=== PATIENT | male | born 1965 | race Two or more races ===

== ENCOUNTER 2022-01-11 20:27 | Inpatient (IN) | payer OTHER ==
[~2022-01-11] VITALS: Ht 167.6 cm; Wt 64.0 kg
--- NOTE | 2022-01-11 21:26 | NUR ---
TO ER BED 2. BIBRA C/O GLF X THIS MORNING. NOW HAVING GENERALIZED BODY PAIN 10/10 ON P/S. PT ADMITS TO KO AFTER FALL. CONNECTED TO MONITOR. AWAITING MD GHOSH
[2022-01-11] MEDS ORDERED: IV NS 0.9% 1,000 ML BAG IV ONE (21:30)
--- NOTE | 2022-01-11 21:41 | NUR ---
LAB AT BEDSIDE
--- NOTE | 2022-01-11 21:44 | NUR ---
COVID ANTIGEN SWAB COLLECTED AND SENT TO LAB
--- NOTE | 2022-01-11 21:45 | NUR ---
PT TAKEN TO CT VIA RITCHIE
[2022-01-11 21:54] LABS: BASOPHILS # (AUTO) 0.1 K/uL (0.0-0.2); BASOPHILS % (AUTO) 0.3 % (0.0-2.0); EOSINOPHILS % (AUTO) 0.3 % (0.0-6.0); HEMATOCRIT 36 % (39-51); HEMOGLOBIN 12.3 g/dL (13.5-17.5); LYMPHOCYTES # (AUTO) 0.9 K/uL (0.8-4.8); LYMPHOCYTES % (AUTO) 4.1 % (20.0-44.0); MEAN CORPUSCULAR HGB CONC 34 g/dl (31.0-36.0); MEAN CORPUSCULAR VOLUME 78 fL (80-96); MONOCYTES # (AUTO) 0.9 K/uL (0.1-1.30); MONOCYTES % (AUTO) 4.1 % (2.0-12.0); NEUTROPHILS # (AUTO) 20.2 K/uL (1.8-8.9); NEUTROPHILS % (AUTO) 91.2 % (43.0-81.0); PLATELET COUNT (AUTO) 396 K/uL (150-450); RED BLOOD CELL COUNT(AUTO) 4.64 MIL/uL (4.5-6.0); WHITE BLOOD COUNT (AUTO) 22.2 K/uL (4.3-11.0)
[2022-01-11] MEDS ORDERED: ONDANSETRON HCL/PF 4 MG/2 ML VIAL ONE (21:55)
[2022-01-11] MEDS ORDERED: CEFTRIAXONE 1GM BAG (ER ONLY) 50 ML IV ONE (21:55)
[2022-01-11] MEDS ORDERED: MORPHINE SULFATE INJ 4 MG/ML DISP.SYRIN ONE (21:55)
--- NOTE | 2022-01-11 21:55 | NUR ---
PT RETURNED TO ER BED [address]
[2022-01-11] MEDS ORDERED: CEFTRIAXONE 1 G in IV D5W 50 ML IV ONE (22:00)
[2022-01-11] MEDS ORDERED: MORPHINE SULFATE INJ 2 MG/ML DISP.SYRIN IV ONE (22:00)
[2022-01-11] MEDS ORDERED: ONDANSETRON HCL/PF 4 MG/2 ML VIAL IVP ONE (22:00)
--- NOTE | 2022-01-11 22:05 | NUR ---
RJ LOPEZ AT BEDSIDE FOR EKG
--- NOTE | 2022-01-11 22:11 | NUR ---
URINE SAMPLE COLLECTED AND SENT TO LAB
[2022-01-11 22:17] LABS: CALCIUM, SERUM 8.2 mg/dL (8.5-10.1); CARBON DIOXIDE 25 mmol/L (21-32); CHLORIDE 99 mmol/L (98-107); CREATININE 0.8 mg/dL (0.6-1.3); GLUCOSE 249 mg/dL (74-106); POTASSIUM 4.2 mmol/L (3.5-5.1); SODIUM SERUM 132 mmol/L (136-145); UREA NITROGEN, BLOOD 25 mg/dL (7-18)
[2022-01-11 22:23] LABS: ALANINE AMINOTRANSFERASE 14 U/L (12-78); ALBUMIN 2.9 g/dL (3.4-5.0); ALCOHOL, BLOOD < 3 mg/dL (0-0); ALKALINE PHOSPHATASE 101 U/L (46-116); ASPARTATE AMINOTRANSFERASE 10 U/L (15-37); BILIRUBIN,DIRECT 0.2 mg/dL (0.0-0.2); BILIRUBIN,TOTAL 0.9 mg/dL (0.2-1.0)
[2022-01-11 23:27] LABS: BILIRUBIN,URINE NEGATIVE (NEGATIVE); COLOR,URINE YELLOW (YELLOW); LEUKOCYTE ESTERASE ,URINE TRACE (NEGATIVE); NITRITE, URINE POSITIVE (NEGATIVE); PROTEIN,URINE 30 mg/dl (NEGATIVE); UGLUCOSE 500 MG/DL mg/dL (NEGATIVE)
[2022-01-11] MEDS ORDERED: ONDANSETRON HCL/PF 4 MG/2 ML VIAL IVP PRN (23:30)
[2022-01-11] MEDS ORDERED: DEXTROSE 50%-WATER 50 ML DISP.SYRIN IV PRN (23:30)
[2022-01-12] MEDS ORDERED: PIPERACILLIN /TAZOBACTAM 3.375 G in IV D5W 50 ML IV SCH ×2
--- NOTE | 2022-01-12 00:10 | NUR ---
REPORT GIVEN LUCIEN RAUSCH FOR [place]
--- NOTE | 2022-01-12 00:40 | NUR ---
MS ENROBING MACHINE OPERATOR NOTES RECEIVED FOR ER PER RITCHIE THIS 53 Y.O.MALE,ALERT,ORIENTED X4,BREATHING REGULAR,NOT IN ANY FORM OF DISTRESS,CHIEF COMPLAINTS OF LOSING BALANCE AN FALLING AT HOME,SUSTAINED SKIN ABRASION ON BOTH LEGS,PROMINENT ON THE LEFT.C/O GENERALIZED BUT MANAGEABLE.WITH MORPHINE 1MG IV FOR PAIN MANAGEMENT.SALINE LOCK LEFT AC INTACT AND PATENT.NO KNOWN ALLERGY TO FOOD AND MEDICINE.VACCINATED PFIEZER X2 WITH BOOSTER.LEWIS CATH INSERTED ON 01/05/22 AT [facility] IN PLACE, DRAINS CLOUDY OUTPUT.WILL CONTINUE TO MONITOR STATUS,CALL LIGHT IN REACH,NEEDS ANTICIPATED.
[2022-01-12 01:30] VITALS: BP 128/82
[2022-01-12] MEDS ORDERED: PIPERACILLIN /TAZOBACTAM 3.375 G VIAL IV ONE (01:58)
[2022-01-12] MEDS ORDERED: ZOSYN IVPB 3.375 G in IV D5W 50ml IV ONE (02:00)
--- NOTE | 2022-01-12 02:17 | NUR ---
OIL WELL DRILLING MANAGER NOTES STARTED ON ZOSYN 3.375 MG IV Z1 ORDERED.
[2022-01-12 02:30] VITALS: BP 128/82
[2022-01-12] MEDS: MORPHINE SULFATE INJ 2 MG/ML DISP.SYRIN IV PRN ×5 (05:28→23:48)
--- NOTE | 2022-01-12 05:28 | NUR ---
MS RN NOTES PAIN MANAGEMENT C/O GENERALIZED PAIN 8/10 ON PAIN SCALE,MORPHINE 1 MG IV GIVEN ORDERED
--- NOTE | 2022-01-12 05:45 | NUR ---
MS RN NOTES ACCU-CHECK BLOOD SUGAR CHECK 202,COVERED WITH HUMULIN R 4 UNITS PER SLIDING SCALE.,PAIN MANAGEMENT EFFECTIVE,LEWIS CATH TO CHANGE THIS MORNING,CALL LIGHT IN REACH,NEEDS ATTENDED.
[2022-01-12] MEDS: BLOOD SUGAR DIAGNOSTIC 1 EACH STRIP IN SCH ×4 (06:04→22:18)
[2022-01-12] MEDS: INSULIN REGULAR, HUMAN 100 UNIT/ML 3 ML VIAL SQ PRN ×3 (06:06→22:18)
[2022-01-12] MEDS ORDERED: GABA300C PO (07:17)
[2022-01-12] MEDS ORDERED: METF-442 PO (07:17)
[2022-01-12] MEDS ORDERED: LISI-768 PO (07:17)
[2022-01-12] MEDS ORDERED: GLIP10TA11 PO (07:17)
[2022-01-12] MEDS ORDERED: TAMS-12 PO (07:17)
--- NOTE | 2022-01-12 07:30 | NUR ---
ms rn received on bed, awake,alert,oriented x4,not in any form of distress, respirations even and unlabored,no sob noted, lungs are clear,abdomen soft,positive bowel sounds,denies pain at this time,miller to gravity w/ yellowish urine output,repositioned for comfort,all needs attended.
--- NOTE | 2022-01-12 08:20 | NUR ---
ms rn breakfast served,due meds given, tolerated well,miller cath to be change today, patient wants it later today.
[2022-01-12] MEDS: PIPERACILLIN /TAZOBACTAM 3.375 G in IV D5W 100 ML IV SCH ×3 (08:33→23:30)
[2022-01-12] MEDS: PANTOPRAZOLE 40 MG VIAL IV SCH (08:33)
[2022-01-12 08:59] LABS: BACTERIA,URINE Rare /HPF (None Seen); SQUAMOUS EPITHELIAL CELL,UR None Seen /HPF (None Seen); URIC ACID CRYSTALS,URINE Moderate /HPF (None Seen)
[2022-01-12] MEDS: ACETAMINOPHEN 325 MG TABLET PO PRN ×2 (09:04→21:23)
--- NOTE | 2022-01-12 11:40 | NUR ---
ms rn blood sugar - 222 - patient refused coverage because he did not eat lunch today, will continue to monitor patient.
--- NOTE | 2022-01-12 15:28 | NUR ---
rn miller catheter changed, w/ good output.
--- NOTE | 2022-01-12 17:31 | NUR ---
ms rn on bed, all needs attended.
--- NOTE | 2022-01-12 19:30 | NUR ---
MS RN OPENING NOTE RECEIVED PT RESTING IN BED, EYES CLOSED, EASILY AROUSABLE. A/O X3 AND ABLE TO MAKE NEEDS KNOWN. PT STABLE ON ROOM AIR. NO SOB OR S/S OF RESPIRATORY DISTRESS NOTED. BREATHING EVEN AND UNLABORED. IV ACCESS L WRIST AND L HAND 18 GAUGE, INTACT AND PATENT. LEWIS CATH IN PLACE DRAINING CLEAR YELLOW URINE. SAFETY PRECAUTIONS IN PLACE. BED IN LOWEST LOCKED POSITION, HOB ELEVATED, SIDE RAILS UP X2, AND CALL LIGHT AND TABLE WITHIN REACH. ALL NEEDS MET AT THIS TIME.
[2022-01-12 20:00] VITALS: BP 121/71
--- NOTE | 2022-01-12 21:23 | NUR ---
RN NOTE PT COMPLAINING OF GENERALIZED PAIN AND REQUESTED TYLENOL. ADMINISTERED TYLENOL 650 MG ORDERED FOR MILD PAIN PRN. MADE COMFORTABLE IN BED. ALL NEEDS MET AT THIS TIME.
--- NOTE | 2022-01-12 22:18 | NUR ---
RN NOTE PT BS 184. PT REFUSING INSULIN PT STATED HE WILL NOT BE EATING TONIGHT. EXPLAINED THE RISKS AND BENEFITS. PT STILL REFUSED. CHARGE NURSE KARLOS AWARE.
--- NOTE | 2022-01-12 23:48 | NUR ---
RN NOTE PT COMPLAINED OF GENERALIZED PAIN 05/12. ADMINISTERED MORPHINE 1 MG FOR SEVERE PAIN ORDERED. MADE COMFORTABLE IN BED. ALL NEEDS MET AT THIS TIME.
[2022-01-13] MEDS: MORPHINE SULFATE INJ 2 MG/ML DISP.SYRIN IV PRN ×5 (05:13→23:25)
--- NOTE | 2022-01-13 05:14 | NUR ---
RN NOTE PT COMPLAINED OF GENERALIZED PAIN 05/12. ADMINISTERED MORPHINE 1 MG FOR SEVERE PAIN ORDERED. MADE COMFORTABLE IN BED AND PARTIAL LINEN CHANGE. ALL NEEDS MET AT THIS TIME.
[2022-01-13] MEDS: BLOOD SUGAR DIAGNOSTIC 1 EACH STRIP IN SCH ×4 (06:30→22:23)
[2022-01-13] MEDS: INSULIN REGULAR, HUMAN 100 UNIT/ML 3 ML VIAL SQ PRN ×3 (06:31→22:25)
--- NOTE | 2022-01-13 06:52 | NUR ---
MS RN CLOSING NOTE PT RESTING IN BED, EYES CLOSED, EASILY AROUSABLE. A/O X3 AND ABLE TO MAKE NEEDS KNOWN. PT STABLE ON ROOM AIR. NO SOB OR S/S OF RESPIRATORY DISTRESS NOTED. BREATHING EVEN AND UNLABORED. IV ACCESS L WRIST 18 GAUGE, INTACT AND PATENT. LEWIS CATH IN PLACE DRAINING CLEAR YELLOW URINE. SAFETY PRECAUTIONS IN PLACE AT ALL TIMES. BED IN LOWEST LOCKED POSITION, HOB ELEVATED, SIDE RAILS UP X2, AND CALL LIGHT AND TABLE WITHIN REACH. ALL NEEDS MET AT THIS TIME AND WILL ENDORSE TO ONCOMING SHIFT FOR [place].
--- NOTE | 2022-01-13 07:30 | NUR ---
ms rn received on bed, awake,alert,oriented x 3,patient always seeking for pain meds. miller to gravity w/ yellowish urine output, will monitor patient at this time.
[2022-01-13 08:00] VITALS: BP 115/74
[2022-01-13] MEDS: PIPERACILLIN /TAZOBACTAM 3.375 G in IV D5W 100 ML IV SCH ×3 (08:04→23:32)
[2022-01-13] MEDS: PANTOPRAZOLE 40 MG VIAL IV SCH (08:05)
--- NOTE | 2022-01-13 08:30 | NUR ---
ms moreno breakfast served,due meds given,tolerated well.
--- NOTE | 2022-01-13 09:20 | NUR ---
ms moreno breakfast served,due meds given,tolerated well.
--- NOTE | 2022-01-13 09:55 | NUR ---
ms rn was seen by andrea aguirre, was aware of the pain and dyspahgia of patient.
--- NOTE | 2022-01-13 12:00 | NUR ---
ms rn patient refused accucheck at this time.
--- NOTE | 2022-01-13 15:38 | NUR ---
ms rn on bed, pain meds just given, having pain meds q 4 as needed.
[2022-01-13 15:39] VITALS: BP 144/85
[2022-01-13 17:04] LABS: THYROID STIMULATING HORMONE 0.135 uIU/mL (0.358-3.74)
[2022-01-13 17:09] LABS: C-REACTIVE PROTEIN 20.9 mg/dL (0.0-0.9)
--- NOTE | 2022-01-13 19:30 | NUR ---
MS RN OPENING NOTE RECEIVED PATIENT IN BED. A/OX3. NO S/S OF APPARENT DISTRESS ON ROOM AIR. PAIN MANAGED WITH MEDICATION BY MORNING SHIFT-- JUST GIVEN MORPHINE. NO FLUIDS RUNNING AT THIS TIME. LEWIS CATH DRAINING CLEAR STRAW COLORED URINE. SAFETY IN PLACE. ORIENTED BY THE USE OF CALL LIGHT. WILL CONTINUE WITH PLAN OF CARE FOR PATIENT.
[2022-01-13 20:00] VITALS: BP 96/65
[2022-01-13] MEDS: ACETAMINOPHEN 325 MG TABLET PO PRN (20:38)
--- NOTE | 2022-01-13 20:40 | NUR ---
MS RN NOTE STILL IN PAIN AFTER MORPHINE. OK TO GIVE TYLENOL PER CHARGE NURSE, BRYAN.
[2022-01-14] MEDS: ACETAMINOPHEN 325 MG TABLET PO PRN ×3 (02:05→23:10)
--- NOTE | 2022-01-14 02:07 | NUR ---
MS RN NOTE PATIENT C/O PAIN AND REQUESTED FOR TYLENOL. WILL CONTINUE TO MONITOR.
[2022-01-14] MEDS: MORPHINE SULFATE INJ 2 MG/ML DISP.SYRIN IV PRN ×5 (03:31→20:20)
[2022-01-14] MEDS: BLOOD SUGAR DIAGNOSTIC 1 EACH STRIP IN SCH ×4 (06:25→21:47)
[2022-01-14] MEDS: INSULIN REGULAR, HUMAN 100 UNIT/ML 3 ML VIAL SQ PRN ×4 (06:27→21:51)
--- NOTE | 2022-01-14 06:44 | NUR ---
MS RN CLOSING NOTE PATIENT IN BED WITH EYES CLOSED. EASY TO AROUSE. NO S/S OF APPARENT DISTRESS ON ROOM AIR. PAIN MANAGED WITH MEDICATIONS. TKO RUNNING AT 5 MLS/HR. LEWIS CATH DRAINING CLEAR, STRAW COLORED URINE. ALL NEEDS ATTENDED. ALL SCHEDULED MEDICATIONS ADMINISTERED. WILL ENDORSE TO MIRACLE DIAZ FOR CONTINUITY OF CARE.
[2022-01-14 06:47] LABS: BASOPHILS # (AUTO) 0.1 K/uL (0.0-0.2); BASOPHILS % (AUTO) 0.3 % (0.0-2.0); EOSINOPHILS % (AUTO) 0.8 % (0.0-6.0); HEMATOCRIT 35 % (39-51); LYMPHOCYTES # (AUTO) 1.2 K/uL (0.8-4.8); LYMPHOCYTES % (AUTO) 7.9 % (20.0-44.0); MEAN CORPUSCULAR HGB CONC 35 g/dl (31.0-36.0); MEAN CORPUSCULAR VOLUME 77 fL (80-96); MONOCYTES # (AUTO) 0.8 K/uL (0.1-1.30); MONOCYTES % (AUTO) 5.1 % (2.0-12.0); NEUTROPHILS % (AUTO) 85.9 % (43.0-81.0); PLATELET COUNT (AUTO) 371 K/uL (150-450); RED BLOOD CELL COUNT(AUTO) 4.52 MIL/uL (4.5-6.0); WHITE BLOOD COUNT (AUTO) 15.1 K/uL (4.3-11.0)
[2022-01-14 06:55] LABS: CALCIUM, SERUM 8.9 mg/dL (8.5-10.1); CREATININE 0.7 mg/dL (0.6-1.3); MAGNESIUM 1.3 mg/dL (1.8-2.4); PHOSPHORUS 3.6 mg/dL (2.5-4.9); POTASSIUM 3.8 mmol/L (3.5-5.1)
--- NOTE | 2022-01-14 07:42 | NUR ---
MS RN OPENING NOTE RECEIVED PATIENT AWAKE IN BED. A/OX4. NO DISTRESS NOTED. ON ROOM AIR TOLERATING WELL. COMPLAINS OF PAIN. 05/12 MORPHINE GIVEN ORDERED. LEWIS CATH DRAINING CLEAR COLORED URINE. IV ACCESS ON THE LEFT WRIST g # 18 AND LEFT HAND INTACT. SAFETY MEASURES IN PLACE. BED LOCKED IN THE LOWEST POSITION. CALL LIGHT AND TABLE IN REACH. WILL CONTINUE TO MONITOR THE PATIENT.
[2022-01-14] MEDS ORDERED: Magnesium 1GM/D5W 100ML PREMIX 100 ML IV SCH (08:00)
[2022-01-14] MEDS: PANTOPRAZOLE 40 MG TABLET.DR PO SCH (08:32)
[2022-01-14] MEDS: Magnesium 1GM/D5W 100ML PREMIX 100 ML IV SCH ×2 (08:33→13:59)
[2022-01-14] MEDS: PIPERACILLIN /TAZOBACTAM 3.375 G in IV D5W 100 ML IV SCH ×2 (09:37→16:09)
--- NOTE | 2022-01-14 16:20 | NUR ---
RN NOTES PT MOANING AND SCREAMING WITH C/O BLE AND BUE ACHING PAIN, 10/10 SCALE. PRN MORPHINE 1MG IVP ADMINISTERED AT 1615. WILL CONTINUE TO MONITOR AND REASSESS PT.
--- NOTE | 2022-01-14 19:31 | NUR ---
MS RN OPENING NOTE RECEIVED PATIENT IN BED. A/OX3-4. NO S/S OF APPARENT DISTRESS ON ROOM AIR. IN CONSTANT PAIN. NO FLUIDS RUNNING AT THIS TIME. LEWIS CATH DRAINING CLEAR STRAW COLORED URINE. SAFETY IN PLACE. ORIENTED BY THE USE OF CALL LIGHT. WILL CONTINUE WITH PLAN OF CARE FOR PATIENT. NEEDS ATTENDED AT THIS TIME.
--- NOTE | 2022-01-14 19:46 | NUR ---
MS RN CLOSING NOTE PATIENT AWAKE IN BED. A/OX4. NO DISTRESS NOTED. ON ROOM AIR TOLERATING WELL. LEWIS CATH DRAINING CLEAR COLORED URINE. IV ACCESS ON THE LEFT WRIST g # 18.ALL DUE MEDS GIVEN ORDERED.SAFETY MEASURES IN PLACE. BED LOCKED IN THE LOWEST POSITION. CALL LIGHT AND TABLE IN REACH. WILL ENDORSE FOR [place].
[2022-01-14 20:00] VITALS: BP 104/69
[2022-01-14] MEDS: MEROPENEM 1 G in IV NS 0.9% 100 ML IV SCH (20:23)
[2022-01-15] MEDS: MORPHINE SULFATE INJ 2 MG/ML DISP.SYRIN IV PRN ×7 (00:22→23:58)
[2022-01-15] MEDS: MEROPENEM 1 G in IV NS 0.9% 100 ML IV SCH ×3 (04:34→21:35)
[2022-01-15 06:19] LABS: BASOPHILS % (AUTO) 0.3 % (0.0-2.0); EOSINOPHILS % (AUTO) 0.6 % (0.0-6.0); HEMATOCRIT 36 % (39-51); HEMOGLOBIN 12.5 g/dL (13.5-17.5); LYMPHOCYTES % (AUTO) 5.7 % (20.0-44.0); MEAN CORPUSCULAR HGB CONC 35 g/dl (31.0-36.0); MEAN CORPUSCULAR VOLUME 77 fL (80-96); MONOCYTES # (AUTO) 0.8 K/uL (0.1-1.30); MONOCYTES % (AUTO) 4.7 % (2.0-12.0); NEUTROPHILS # (AUTO) 15.2 K/uL (1.8-8.9); NEUTROPHILS % (AUTO) 88.7 % (43.0-81.0); PLATELET COUNT (AUTO) 408 K/uL (150-450); RED BLOOD CELL COUNT(AUTO) 4.64 MIL/uL (4.5-6.0); WHITE BLOOD COUNT (AUTO) 17.1 K/uL (4.3-11.0)
[2022-01-15] MEDS: BLOOD SUGAR DIAGNOSTIC 1 EACH STRIP IN SCH ×4 (06:32→21:35)
[2022-01-15] MEDS: INSULIN REGULAR, HUMAN 100 UNIT/ML 3 ML VIAL SQ PRN ×4 (06:36→21:56)
--- NOTE | 2022-01-15 06:58 | NUR ---
MS RN CLOSING NOTE PATIENT IN BED WITH EYES CLOSED, EASY TO AROUSE. A/OX4, PATIENT PREFERS NO GOWN AT THIS TIME. NO S/S OF APPARENT DISTRESS ON ROOM AIR. BREATHING EVEN AND UNLABORED. PAIN MANAGED WITH MEDICATIONS. ALL NEEDS ATTENDED. ALL SCHEDULED MEDICATIONS ADMINISTERED. NO SIGNIFICANT CHANGE WITH PATIENT. WILL ENDORSE TO MORNING SHIFT RN FOR CONTINUITY OF CARE.
[2022-01-15 07:21] LABS: CALCIUM, SERUM 8.8 mg/dL (8.5-10.1); CREATININE 0.6 mg/dL (0.6-1.3); MAGNESIUM 1.5 mg/dL (1.8-2.4); POTASSIUM 3.8 mmol/L (3.5-5.1)
--- NOTE | 2022-01-15 07:50 | NUR ---
RN OPENING NOTE PATIENT IN BED. A/OX4. ON ROOM AIR. IN CONSTANT PAIN. NO FLUIDS RUNNING AT THIS TIME. LEWIS CATH DRAINING CLEAR YELLOW COLORED URINE. SAFETY IN PLACE. ORIENTED BY THE USE OF CALL LIGHT. DR FLYNN SAW PT. ASSESSING PAIN MEDS AND NEEDS, WILL CONTINUE WITH PLAN OF CARE FOR PATIENT. NEEDS ATTENDED AT THIS TIME. MONITOR / ASSIST
[2022-01-15 08:17] VITALS: BP 142/88
--- NOTE | 2022-01-15 08:30 | NUR ---
RN NOTE- PT CRYING THIS MORNING. PAIN COMPLAINTS. DR FLYNN ORDERED INCREASE IN CURRENT MORPHINE DOSING. NEW ORDER MORPHINE 2 MG IV Q4HPRN
[2022-01-15] MEDS: PANTOPRAZOLE 40 MG TABLET.DR PO SCH (08:51)
[2022-01-15] MEDS ORDERED: MAGNESIUM OXIDE 400 MG TABLET PO ONE (11:30)
[2022-01-15 16:22] VITALS: BP_SYST 138; BP_SYST 142; BP_DIAS 85; BP_DIAS 88
--- NOTE | 2022-01-15 18:33 | NUR ---
RN CLOSING NOTE PATIENT IN BED. A/OX4. ON ROOM AIR. NO FLUIDS RUNNING AT THIS TIME. LEWIS CATH DRAINING CLEAR TEA COLORED URINE. SAFETY IN PLACE. ORIENTED BY THE USE OF CALL LIGHT PAIN MANAGEMENT CONSULT ORDERED. DR TO SEE TOMORROW. WILL CONTINUE WITH PLAN OF CARE FOR PATIENT. NEEDS ATTENDED AT THIS TIME. MONITOR / ASSIST
[2022-01-15 20:00] VITALS: BP 132/81
--- NOTE | 2022-01-15 20:07 | NUR ---
RN OPENING NOTE PATIENT RECEIVED AWAKE IN BED. A/OX4. NO S/S OF DISTRESS, BREATHING ON RM AIR W/O DIFFICULTY. L-WRIST #18 INTACT AND PATENT. SAFETY MEASURES IN PLACE: BED AT LOWEST POSITION, LOCKED, RAILS UPX3, CALL WHITING WITHIN REACH. WILL CONTINUE TO MONITOR PATIENT.
[2022-01-15] MEDS: ACETAMINOPHEN 325 MG TABLET PO PRN (21:54)
[2022-01-16] MEDS: MORPHINE SULFATE INJ 2 MG/ML DISP.SYRIN IV PRN ×5 (04:00→21:42)
[2022-01-16] MEDS: MEROPENEM 1 G in IV NS 0.9% 100 ML IV SCH ×3 (05:07→21:01)
[2022-01-16] MEDS: INSULIN REGULAR, HUMAN 100 UNIT/ML 3 ML VIAL SQ PRN ×4 (06:21→22:24)
[2022-01-16 06:31] LABS: BASOPHILS % (AUTO) 0.5 % (0.0-2.0); EOSINOPHILS % (AUTO) 1.3 % (0.0-6.0); HEMATOCRIT 39 % (39-51); HEMOGLOBIN 13.6 g/dL (13.5-17.5); LYMPHOCYTES # (AUTO) 1.1 K/uL (0.8-4.8); LYMPHOCYTES % (AUTO) 11.2 % (20.0-44.0); MEAN CORPUSCULAR HGB CONC 35 g/dl (31.0-36.0); MEAN CORPUSCULAR VOLUME 77 fL (80-96); MONOCYTES # (AUTO) 0.6 K/uL (0.1-1.30); MONOCYTES % (AUTO) 6.4 % (2.0-12.0); NEUTROPHILS # (AUTO) 8.1 K/uL (1.8-8.9); NEUTROPHILS % (AUTO) 80.6 % (43.0-81.0); PLATELET COUNT (AUTO) 444 K/uL (150-450); RED BLOOD CELL COUNT(AUTO) 5.06 MIL/uL (4.5-6.0)
[2022-01-16] MEDS: BLOOD SUGAR DIAGNOSTIC 1 EACH STRIP IN SCH ×4 (06:36→21:55)
[2022-01-16 06:50] LABS: CREATININE 0.7 mg/dL (0.6-1.3); MAGNESIUM 1.5 mg/dL (1.8-2.4); PHOSPHORUS 2.9 mg/dL (2.5-4.9); POTASSIUM 4.4 mmol/L (3.5-5.1)
--- NOTE | 2022-01-16 07:50 | NUR ---
RN CLOSING NOTE PATIENT IS ASLEEP IN BED. A/OX4. NO S/S OF DISTRESS, BREATHING WELL ON ROOM AIR. L-WRIST #18INTACT AND PATENT. SAFETY MEASURES IN PLACE: BED AT LOWEST POSITION, LOCKED, RAILS UP X3, CALL WHITING WITHIN REACH. REPORT ENDORSED TO AND ACKNOWLEDGED BY AMEE DAY SHIFT RN, FOR [place].
--- NOTE | 2022-01-16 07:56 | NUR ---
RN OPENING NOTE PATIENT IN BED RESTING, SLEEPING, AWAKENS TO VERBAL STIMULI. A/O X 4. NO S/S OF PAIN NOTED AT THIS TIME. ON ROOM AIR, NO DISTRESS OR SHORTNESS OF BREATH NOTED. IV ACCESS L WRIST #18G, INTACT, PATENT AND FLUSHING WELL. PATIENT HAVE A LEWIS CATHETER, IN PLACE DRAINING WELL. FALL AND SAFETY MEASURES IN PLACE, BED ALARM ON, BED IN LOW AND LOCK POSITION, CALL LIGHT AND TABLE WITHIN EASY REACH, SIDE RAILS UP X2. WILL CONTINUE TO MONITOR.
[2022-01-16 08:00] VITALS: BP 127/88
[2022-01-16] MEDS: PANTOPRAZOLE 40 MG TABLET.DR PO SCH (08:11)
[2022-01-16] MEDS ORDERED: MAGNESIUM OXIDE 400 MG TABLET PO ONE (12:30)
[2022-01-16 15:48] VITALS: BP 109/74
[2022-01-16] MEDS ORDERED: IV NS 0.9% 1,000 ML IV ONE (16:00)
[2022-01-16] MEDS: ACETAMINOPHEN 325 MG TABLET PO PRN (16:09)
--- NOTE | 2022-01-16 19:27 | NUR ---
RN CLOSING NOTE PATIENT IN BED RESTING, SLEEPING, AWAKENS TO VERBAL STIMULI. A/O X 4. NO S/S OF PAIN NOTED AT THIS TIME. ON ROOM AIR, NO DISTRESS OR SHORTNESS OF BREATH NOTED. IV ACCESS L WRIST #18G, INTACT, PATENT AND FLUSHING WELL. PATIENT HAVE A LEWIS CATHETER, IN PLACE DRAINING WELL, OUTPUT 450ML. FALL AND SAFETY MEASURES IN PLACE, BED ALARM ON, BED IN LOW AND LOCK POSITION, CALL LIGHT AND TABLE WITHIN EASY REACH, SIDE RAILS UP X2. WILL ENDORSE TO ACCOUNTS RECEIVABLE ASSISTANT.
--- NOTE | 2022-01-16 19:30 | NUR ---
MS RN OPENING NOTES RECEIVED PATIENT IN BED; AWAKE, ALERT AND ORIENTED X4. BREATHING IS EVEN AND NONLABORED. IN NO ACUTE DISTRESS NOTED. ON ROOM AIR, WELL TOLERATED. WITH IV ACCESS ON LEFT WRIST G#18 INFUSING WITH NS 1L REGULATED AT 50ML/HR; PATENT, INTACT AND FLUSHES WELL. ABLE TO MAKE NEEDS KNOWN. SAFETY MEASURES IMPLEMENTED: CALL BUTTON AND TABLE WITHIN EASY REACH, SIDE RAILS UP X2, BED IN LOWEST LOCKED POSITION. WILL CONTINUE PLAN OF CARE.
[2022-01-16 20:00] VITALS: BP_SYST 134; BP_SYST 139; BP_DIAS 84
--- NOTE | 2022-01-16 21:55 | NUR ---
MS RN NOTES] BLOOD SUGAR CHECKED AT 2150 WITH RESULT OF 200 MG/DL; 3 UNITS OF INSULIN GIVEN PER SLIDING SCALE ORDERED.
[2022-01-17] MEDS: MORPHINE SULFATE INJ 2 MG/ML DISP.SYRIN IV PRN ×3 (02:39→12:38)
[2022-01-17] MEDS: ACETAMINOPHEN 325 MG TABLET PO PRN (06:02)
[2022-01-17] MEDS: MEROPENEM 1 G in IV NS 0.9% 100 ML IV SCH ×3 (06:02→21:19)
[2022-01-17] MEDS: BLOOD SUGAR DIAGNOSTIC 1 EACH STRIP IN SCH ×4 (06:16→21:19)
[2022-01-17] MEDS: INSULIN REGULAR, HUMAN 100 UNIT/ML 3 ML VIAL SQ PRN ×4 (06:42→21:22)
--- NOTE | 2022-01-17 07:00 | NUR ---
MS RN CLOSING NOTES PATIENT IS IN BED; SLEEPING, EASILY AROUSABLE TO VERBAL STIMULI; ALERT AND ORIENTED X4. ON ROOM AIR, TOLERATING WELL. NO SHORTNESS OF BREATH NOTED. WITH IV ACCESS ON L WRIST #18G; PATENT INTACT AND FLUSHING WELL. PATIENT HAVE A LEWIS CATHETER, IN PLACE DRAINING WELL, OUTPUT 450ML. FALL AND SAFETY MEASURES IN PLACE, BED ALARM ON, BED IN LOW AND LOCK POSITION, CALL LIGHT AND TABLE WITHIN EASY REACH, SIDE RAILS UP X2. WILL ENDORSE TO MORNING SHIFT FOR [place].
[2022-01-17 07:24] LABS: BASOPHILS # (AUTO) 0.1 K/uL (0.0-0.2); BASOPHILS % (AUTO) 0.7 % (0.0-2.0); EOSINOPHILS % (AUTO) 1.5 % (0.0-6.0); HEMATOCRIT 38 % (39-51); HEMOGLOBIN 13.6 g/dL (13.5-17.5); LYMPHOCYTES # (AUTO) 1.2 K/uL (0.8-4.8); LYMPHOCYTES % (AUTO) 12.4 % (20.0-44.0); MEAN CORPUSCULAR HGB CONC 36 g/dl (31.0-36.0); MEAN CORPUSCULAR VOLUME 76 fL (80-96); MONOCYTES # (AUTO) 0.7 K/uL (0.1-1.30); MONOCYTES % (AUTO) 7.2 % (2.0-12.0); NEUTROPHILS # (AUTO) 7.8 K/uL (1.8-8.9); NEUTROPHILS % (AUTO) 78.2 % (43.0-81.0); PLATELET COUNT (AUTO) 446 K/uL (150-450); RED BLOOD CELL COUNT(AUTO) 4.99 MIL/uL (4.5-6.0)
--- NOTE | 2022-01-17 07:26 | NUR ---
MS RN OPENING NOTES RECEIVED PATIENT IN BED; AWAKE, ALERT AND ORIENTED X4. ABLE TO MAKE NEEDS KNOWN. ON ROOM AIR, WELL TOLERATED. BREATHING IS EVEN AND UNLABORED, NOT IN ANY SIGN OF RESPIRATORY DISTRESS NOTED. IV ACCESS ON LEFT WRIST G#18 INTACT AND PATENT WITH NS INFUSING AT 50ML/HR. SAFETY MEASURES IMPLEMENTED: CALL BUTTON AND TABLE WITHIN EASY REACH, SIDE RAILS UP X2, BED IN LOWEST AND LOCKED POSITION. WILL CONTINUE TO MONITOR AND WITH PLAN OF CARE.
[2022-01-17 08:00] VITALS: BP 141/91
[2022-01-17 08:00] LABS: CREATININE 0.6 mg/dL (0.6-1.3); MAGNESIUM 1.5 mg/dL (1.8-2.4); POTASSIUM 4.2 mmol/L (3.5-5.1)
[2022-01-17] MEDS: PANTOPRAZOLE 40 MG TABLET.DR PO SCH (08:23)
[2022-01-17] MEDS ORDERED: MAGNESIUM OXIDE 400 MG TABLET PO ONE (12:30)
[2022-01-17 13:06] LABS: *SPE A/G RATIO 0.7 (0.7-1.7); *SPE ALPHA-1-GLOBULIN 0.4 g/dL (0.0-0.4); *SPE ALPHA-2-GLOBULIN 1.2 g/dL (0.4-1.0); *SPE M-SPIKE Not Observed g/dL (Not Observed)
[2022-01-17] MEDS: GABAPENTIN 300 MG CAPSULE PO SCH ×2 (14:44→16:22)
[2022-01-17 16:00] VITALS: BP 141/90
[2022-01-17] MEDS: HYDROCODONE/APAP 10/325MG TABLET PO PRN ×2 (16:28→23:26)
--- NOTE | 2022-01-17 19:27 | NUR ---
MS RN CLOSING NOTES PATIENT IN BED; AWAKE, ALERT AND ORIENTED X4. ABLE TO MAKE NEEDS KNOWN. ON ROOM AIR, WELL TOLERATED. BREATHING IS EVEN AND UNLABORED, NOT IN ANY SIGN OF RESPIRATORY DISTRESS NOTED. IV ACCESS ON LEFT WRIST G#18 INTACT AND PATENT WITH NS INFUSING AT 50ML/HR. TURNED AND REPOSITIONED Q2HRS AND NEEDED. ALL NEEDS ATTENDED. SAFETY MEASURES IMPLEMENTED: CALL BUTTON AND TABLE WITHIN EASY REACH, SIDE RAILS UP X2, BED IN LOWEST AND LOCKED POSITION. ENDORSED TO CD MIXER NURSE.
--- NOTE | 2022-01-17 19:43 | NUR ---
RN OPENING NOTES RECEIVED PT IN BED, ASLEEP, AWAKENS TO VERBAL STIMULI. AOx4, ABLE TO MAKE NEEDS KNOWN. ON RA AND TOLERATING WELL. NO SOB NOTED. NO S/SX OF RESPIRATORY DISTRESS NOTED. IV ACCESS IN L WRIST #18G RUNNING NS @ 50 ML/HR. SAFETY PRECAUTIONS IN PLACE: BED IN LOWEST, LOCKED POSITION, SIDERAILS UPx2, AND BRAKES ON. TABLE AND CALL LIGHT WITHIN REACH. WILL CONTINUE TO MONITOR.
[2022-01-17 20:00] VITALS: BP 127/75
[2022-01-17] MEDS: TAMSULOSIN 0.4 MG CAP.SR.24H PO SCH (21:20)
--- NOTE | 2022-01-17 23:26 | NUR ---
ADMINISTERED NORCO FOR PAIN PER MD ORDER. VS WNL. WILL CONTINUE TO MONITOR.
[2022-01-18] MEDS: MEROPENEM 1 G in IV NS 0.9% 100 ML IV SCH ×3 (05:10→21:45)
[2022-01-18] MEDS: MORPHINE SULFATE INJ 2 MG/ML DISP.SYRIN IV PRN ×2 (05:10→15:20)
--- NOTE | 2022-01-18 05:10 | NUR ---
ADMINISTERED MORPHINE PER MR ORDER. VS WNL. WILL CONTINUE TO MONITOR.
[2022-01-18] MEDS: INSULIN REGULAR, HUMAN 100 UNIT/ML 3 ML VIAL SQ PRN ×4 (06:36→21:57)
[2022-01-18] MEDS: BLOOD SUGAR DIAGNOSTIC 1 EACH STRIP IN SCH ×4 (06:36→21:46)
--- NOTE | 2022-01-18 06:53 | NUR ---
RN CLOSING NOTES PT IN BED, ASLEEP, AWAKENS TO VERBAL STIMULI. AOx4, ABLE TO MAKE NEEDS KNOWN. ON RA AND TOLERATING WELL. NO SOB NOTED. NO S/SX OF RESPIRATORY DISTRESS NOTED. IV ACCESS IN L WRIST #18G RUNNING NS @ 50 ML/HR. ALL ORDERS CARRIED OUT. ALL NEEDS MET. PT KEPT CLEAN AND DRY. TREATED PAIN THROUGHOUT SHIFT. SAFETY PRECAUTIONS IN PLACE: BED IN LOWEST, LOCKED POSITION, SIDERAILS UPx2, AND BRAKES ON. TABLE AND CALL LIGHT WITHIN REACH. WILL ENDORSE TO ONCOMING SHIFT FOR [place].
[2022-01-18 07:18] LABS: BASOPHILS % (AUTO) 0.4 % (0.0-2.0); EOSINOPHILS % (AUTO) 1.1 % (0.0-6.0); HEMATOCRIT 37 % (39-51); HEMOGLOBIN 12.9 g/dL (13.5-17.5); LYMPHOCYTES # (AUTO) 1.3 K/uL (0.8-4.8); LYMPHOCYTES % (AUTO) 10.6 % (20.0-44.0); MEAN CORPUSCULAR HGB CONC 35 g/dl (31.0-36.0); MEAN CORPUSCULAR VOLUME 77 fL (80-96); MONOCYTES # (AUTO) 0.8 K/uL (0.1-1.30); MONOCYTES % (AUTO) 6.5 % (2.0-12.0); NEUTROPHILS % (AUTO) 81.4 % (43.0-81.0); PLATELET COUNT (AUTO) 417 K/uL (150-450); RED BLOOD CELL COUNT(AUTO) 4.77 MIL/uL (4.5-6.0); WHITE BLOOD COUNT (AUTO) 12.2 K/uL (4.3-11.0)
[2022-01-18 07:24] LABS: CALCIUM, SERUM 8.7 mg/dL (8.5-10.1); CREATININE 0.6 mg/dL (0.6-1.3); MAGNESIUM 1.6 mg/dL (1.8-2.4); POTASSIUM 4.3 mmol/L (3.5-5.1)
--- NOTE | 2022-01-18 07:28 | NUR ---
MS RN OPENING NOTES RECEIVED PATIENT IN BED; AWAKE, ALERT AND ORIENTED X4. ABLE TO MAKE NEEDS KNOWN. ON ROOM AIR, WELL TOLERATED. BREATHING IS EVEN AND UNLABORED, NOT IN ANY SIGN OF RESPIRATORY DISTRESS NOTED. IV ACCESS ON LEFT WRIST G#18 INTACT AND PATENT. SAFETY MEASURES IMPLEMENTED: CALL BUTTON AND TABLE WITHIN EASY REACH, SIDE RAILS UP X2, BED IN LOWEST AND LOCKED POSITION. WILL CONTINUE TO MONITOR AND WITH PLAN OF CARE.
[2022-01-18 08:00] VITALS: BP 110/74
[2022-01-18] MEDS: GABAPENTIN 300 MG CAPSULE PO SCH ×3 (09:31→17:17)
[2022-01-18] MEDS: METFORMIN 500 MG TABLET PO SCH ×2 (09:31→17:17)
[2022-01-18] MEDS: LISINOPRIL (5MG) 5 MG TABLET PO SCH (09:32)
[2022-01-18] MEDS: PANTOPRAZOLE 40 MG TABLET.DR PO SCH (09:32)
[2022-01-18] MEDS: HYDROCODONE/APAP 10/325MG TABLET PO PRN (09:36)
[2022-01-18] MEDS ORDERED: MAGNESIUM OXIDE 400 MG TABLET PO ONE (10:00)
[2022-01-18] MEDS: IV NS 0.9% 1,000 ML IV SCH (11:16)
--- NOTE | 2022-01-18 15:15 | NUR ---
RN NOTES CONSENT FOR LUMBAR PUNCTURE OBTAINED AND SIGNED BY PATIENT AT 1513.
--- NOTE | 2022-01-18 15:40 | NUR ---
RN NOTES LUMBAR PUNCTURE DONE BY DR. ANGELA AGUIRRE AT PT'S BEDSIDE. PT ON S/P LUMBAR PUNCTURE, TOLERATED WELL. VITALS TAKEN BP 99/68, P 84, TEMP 98.6, R 18, SPO2 98% IN ROOM AIR. WILL CONTINUE TO MONITOR PT.
[2022-01-18 16:00] VITALS: BP 99/62
[2022-01-18] MEDS: GLUCERNA SHAKE 237 ML CAN PO SCH (17:17)
[2022-01-18 18:53] LABS: CSF GLUCOSE 106 mg/dL (40-70)
--- NOTE | 2022-01-18 18:54 | NUR ---
MS RN CLOSING NOTES PATIENT IN BED; AWAKE, ALERT AND ORIENTED X4. ABLE TO MAKE NEEDS KNOWN. ON ROOM AIR, WELL TOLERATED. BREATHING IS EVEN AND UNLABORED, NOT IN ANY SIGN OF RESPIRATORY DISTRESS NOTED. IV ACCESS ON LEFT WRIST G#18 INTACT AND PATENT WITH NS INFUSING AT 50ML/HR. TURNED AND REPOSITIONED Q2HRS AND NEEDED. ALL NEEDS ATTENDED. S/P LUMBAR PUNCTURE. DENIES HEADACHE OR PAIN AT THE SITE AT THIS TIME. SAFETY MEASURES IMPLEMENTED: CALL BUTTON AND TABLE WITHIN EASY REACH, SIDE RAILS UP X2, BED IN LOWEST AND LOCKED POSITION. WILL ENDORSE TO THREAD TWISTER NURSE.
--- NOTE | 2022-01-18 19:30 | NUR ---
RN OPENING NOTE PATIENT IN BED, AWAKE, ABLE TO MAKE NEEDS KNOWN. PATIENT S/P LUMBAR PUNCTURE WITH DR. AGUIRRE. PATIENT DOES NOT REPORT ANY PAIN AT THIS TIME. PATIENT IS ON RA, NOT IN ANY RESPIRATORY DISTRESS. BREATHING EVEN AND UNLABORED. PATIENT HAS A LEWIS CATHETER IN PLACE DRAINING VIA GRAVITY. PATIENT HAS A L WRIST 18 G RUNNING NS AT 50 ML/HR. SAFETY MEASURES IN PLACE: BED LOCKED AND IN LOWEST POSITION, CALL LIGHT WITHIN REACH, SIDE RAILS UP. WILL MONITOR PATIENT CLOSELY.
[2022-01-18 19:35] LABS: CSF PROTEIN 222.1 mg/dL (15-45)
--- NOTE | 2022-01-18 19:45 | NUR ---
NOTIFIED BY LAB RE CSF FLUID PROTEIN LEVEL OF 222.1 AND GLUCOSE OF 106. WILL NOTIFY
[2022-01-18 20:00] VITALS: BP 95/57
--- NOTE | 2022-01-18 20:30 | NUR ---
RN NOTE PATIENT'S BP 84/49, 84/53, AND 82/56. NOTIFIED MD. S/P LUMBAR PUNCTURE. NOTIFIED ALSO REGARDING CSF PROTEIN AND GLUCOSE. NO NEW ORDERS FROM .
--- NOTE | 2022-01-18 21:30 | NUR ---
NORCO 5-325 GIVEN FOR PAIN ON HIS EXTREMITIES AND HIS BACK. WILL REASSESS MED EFFECTIVENESS. Addendum: 01/19/22 at 0523 by NIYAH ESCAMILLA RN 2146 GIVEN
--- NOTE | 2022-01-18 21:45 | NUR ---
RN NOTE BP NOW 110/88, HR 85
[2022-01-18] MEDS: TAMSULOSIN 0.4 MG CAP.SR.24H PO SCH (21:46)
[2022-01-18] MEDS: HYDROCODONE/APAP 5/325MG TABLET PO PRN (21:46)
[2022-01-19] VITALS: BP 122/78
[2022-01-19] MEDS: MORPHINE SULFATE INJ 2 MG/ML DISP.SYRIN IV PRN ×4 (01:04→21:09)
--- NOTE | 2022-01-19 01:04 | NUR ---
MORPHINE GIVEN FOR PAIN 06/11. WILL REASSESS PAIN AT A LATER TIME.
[2022-01-19] MEDS: MEROPENEM 1 G in IV NS 0.9% 100 ML IV SCH ×3 (05:27→21:07)
[2022-01-19] MEDS: IV NS 0.9% 1,000 ML IV SCH (06:36)
[2022-01-19] MEDS: INSULIN REGULAR, HUMAN 100 UNIT/ML 3 ML VIAL SQ PRN ×3 (06:36→21:25)
[2022-01-19 06:40] LABS: BASOPHILS % (AUTO) 0.5 % (0.0-2.0); EOSINOPHILS % (AUTO) 1.3 % (0.0-6.0); HEMATOCRIT 36 % (39-51); HEMOGLOBIN 12.7 g/dL (13.5-17.5); LYMPHOCYTES # (AUTO) 1.4 K/uL (0.8-4.8); LYMPHOCYTES % (AUTO) 13.8 % (20.0-44.0); MEAN CORPUSCULAR HGB CONC 36 g/dl (31.0-36.0); MEAN CORPUSCULAR VOLUME 77 fL (80-96); MONOCYTES # (AUTO) 0.8 K/uL (0.1-1.30); MONOCYTES % (AUTO) 7.8 % (2.0-12.0); NEUTROPHILS % (AUTO) 76.6 % (43.0-81.0); PLATELET COUNT (AUTO) 424 K/uL (150-450); RED BLOOD CELL COUNT(AUTO) 4.65 MIL/uL (4.5-6.0); WHITE BLOOD COUNT (AUTO) 10.4 K/uL (4.3-11.0)
[2022-01-19] MEDS: BLOOD SUGAR DIAGNOSTIC 1 EACH STRIP IN SCH ×4 (06:43→21:24)
[2022-01-19 07:23] LABS: CALCIUM, SERUM 8.7 mg/dL (8.5-10.1); CREATININE 0.7 mg/dL (0.6-1.3); MAGNESIUM 1.6 mg/dL (1.8-2.4); POTASSIUM 4.4 mmol/L (3.5-5.1)
--- NOTE | 2022-01-19 07:30 | NUR ---
RN CLOSING NOTE PATIENT IN BED, EYES CLOSED, EASILY AWAKENED. ABLE TO MAKE NEEDS KNOWN. PATIENT IS ON RA, NOT IN ANY RESPIRATORY DISTRESS. BREATHING EVEN AND UNLABORED. PAIN MANAGED WITH NORCO AND MORPHINE EFFECTIVELY. PATIENT HAS A LEWIS CATHETER IN PLACE DRAINING YELLOW URINE VIA GRAVITY. PATIENT HAS A L WRIST 18 G RUNNING NS AT 50 ML/HR. ALL NEEDS MET AND ATTENDED. ALL ORDERS CARRIED OUT. SAFETY MEASURES IN PLACE: BED LOCKED AND IN LOWEST POSITION, CALL LIGHT WITHIN REACH, SIDE RAILS UP. ENDORSED TO DAY SHIFT NURSE FOR [place].
--- NOTE | 2022-01-19 07:42 | NUR ---
MS RN OPENING NOTE RECEIVED PATIENT RESTING IN BED. A/OX4. NO DISTRESS NOTED. ON ROOM AIR TOLERATING WELL. LEWIS CATH DRAINING CLEAR COLORED URINE. IV ACCESS ON THE LEFT WRIST g # 18 RUNNING NS AT 50 ML/HR. SAFETY MEASURES IN PLACE. BED LOCKED IN THE LOWEST POSITION. CALL LIGHT AND TABLE IN REACH. WILL CONTINUE TO MONITOR THE PATIENT.
[2022-01-19] MEDS: GLUCERNA SHAKE 237 ML CAN PO SCH ×2 (08:27→16:28)
[2022-01-19] MEDS: PANTOPRAZOLE 40 MG TABLET.DR PO SCH (08:29)
[2022-01-19] MEDS: METFORMIN 500 MG TABLET PO SCH ×2 (08:29→16:28)
[2022-01-19] MEDS: LISINOPRIL (5MG) 5 MG TABLET PO SCH (08:30)
[2022-01-19] MEDS: GABAPENTIN 300 MG CAPSULE PO SCH ×3 (08:31→16:28)
[2022-01-19] MEDS ORDERED: MAGNESIUM OXIDE 400 MG TABLET PO ONE (10:00)
--- NOTE | 2022-01-19 19:30 | NUR ---
MS RN CLOSING NOTE PATIENT RESTING IN BED. A/OX4. NO DISTRESS NOTED. ON ROOM AIR TOLERATING WELL. LEWIS CATH DRAINING CLEAR COLORED URINE 1600 ML.ALL DUE MEDS GIVEN ORDERED. IV ACCESS ON THE LEFT WRIST g # 18 RUNNING NS AT 50 ML/HR. SAFETY MEASURES IN PLACE. BED LOCKED IN THE LOWEST POSITION. CALL LIGHT AND TABLE IN REACH. WILL ENDORSE FOR [place].
--- NOTE | 2022-01-19 19:30 | NUR ---
MS RN OPENING NOTES RECEIVED PT LYING IN BED AWAKE, HOB ELEVATED AT 45 DEGREES. A/O X4. C/O BURNING AND THROBBING PAIN ON BILATERAL HANDS GOING UP TO HIS ELBOWS 10/10. CHILLS NOTED. BREATHING EVEN AND NON-LABORED ON ROOM AIR. HAS LEFT WRIST IV ACCESS #18G WITH NS RUNNING AT 50 ML/HR. NO S/S OF INFILTRATION NOTED. SAFETY PRECAUTIONS IN PLACE. WILL CONTINUE PLAN OF CARE.
[2022-01-19 20:00] VITALS: BP 93/59
[2022-01-19] MEDS: HYDROCODONE/APAP 10/325MG TABLET PO PRN (20:02)
--- NOTE | 2022-01-19 20:02 | NUR ---
MS RN NOTES ADMINISTERED PRN NORCO 10-325 R/T C/O BUE PAIN 06/11. TOLERATED WELL.
[2022-01-19] MEDS: TAMSULOSIN 0.4 MG CAP.SR.24H PO SCH (21:07)
--- NOTE | 2022-01-19 21:09 | NUR ---
MS RN NOTES PT STILL C/O BUE PAIN 05/12. GRIMACING, IRRITABILITY AND MOANING NOTED. ADMINISTERED PRN MORPHINE SO4 2 MG. TOLERATED WELL.
--- NOTE | 2022-01-19 21:25 | NUR ---
MS RN NOTES PT REFUSED INSULIN COVERAGE. VERBALIZED HE IS NOT GOING TO EAT ANYMORE TONIGHT. EXPLAINED RISKS AND BENEFITS, OFFERED X3, STILL REFUSED.
[2022-01-20] MEDS: HYDROCODONE/APAP 5/325MG TABLET PO PRN ×2 (00:39→17:53)
[2022-01-20] MEDS: IV NS 0.9% 1,000 ML IV SCH (02:13)
[2022-01-20] MEDS: MORPHINE SULFATE INJ 2 MG/ML DISP.SYRIN IV PRN ×4 (03:10→21:10)
--- NOTE | 2022-01-20 03:15 | NUR ---
MS RN NOTES PT C/O BUE PAIN 06/11. ADMINISTERED PRN MORPHINE SO4 2MG, TOLERATED WELL.
[2022-01-20] MEDS: MEROPENEM 1 G in IV NS 0.9% 100 ML IV SCH ×3 (04:08→21:11)
[2022-01-20] MEDS: BLOOD SUGAR DIAGNOSTIC 1 EACH STRIP IN SCH ×3 (06:53→16:43)
[2022-01-20] MEDS: INSULIN REGULAR, HUMAN 100 UNIT/ML 3 ML VIAL SQ PRN ×3 (07:01→16:43)
[2022-01-20 07:02] LABS: CALCIUM, SERUM 8.5 mg/dL (8.5-10.1); CREATININE 0.6 mg/dL (0.6-1.3); MAGNESIUM 1.6 mg/dL (1.8-2.4); PHOSPHORUS 2.8 mg/dL (2.5-4.9); POTASSIUM 4.6 mmol/L (3.5-5.1)
[2022-01-20 07:11] LABS: BASOPHILS # (AUTO) 0.1 K/uL (0.0-0.2); BASOPHILS % (AUTO) 0.4 % (0.0-2.0); EOSINOPHILS % (AUTO) 0.6 % (0.0-6.0); HEMATOCRIT 35 % (39-51); LYMPHOCYTES % (AUTO) 6.8 % (20.0-44.0); MEAN CORPUSCULAR HGB CONC 34 g/dl (31.0-36.0); MEAN CORPUSCULAR VOLUME 77 fL (80-96); MONOCYTES # (AUTO) 0.6 K/uL (0.1-1.30); MONOCYTES % (AUTO) 4.2 % (2.0-12.0); NEUTROPHILS # (AUTO) 12.7 K/uL (1.8-8.9); PLATELET COUNT (AUTO) 395 K/uL (150-450); RED BLOOD CELL COUNT(AUTO) 4.53 MIL/uL (4.5-6.0); WHITE BLOOD COUNT (AUTO) 14.4 K/uL (4.3-11.0)
--- NOTE | 2022-01-20 07:30 | NUR ---
RN OPENING NOTES RECEIVED PATIENT IN BED, AWAKE, A/O X4, VERBALLY RESPONSIVE, NO SIGNS OF ACUTE DISTRESS NOTED. ON ROOM AIR, TOLERATING WELL. NO SOB NOTED, BREATHING EVEN AND UNLABORED. NOTED WITH LEFT WRIST IV ACCESS #18G, INTACT AND PATENT, WITH NS RUNNING AT 50 ML/HR. WITH F/C DRAINING CLEAR YELLOW URINE VIA GRAVITY. SAFETY PRECAUTIONS IN PLACE, BED IN LOWEST AND LOCKED POSITION, SIDE RAILS UP X2, CALL LIGHT WITHIN REACH. WILL CONTINUE TO MONITOR PATIENT.
--- NOTE | 2022-01-20 07:30 | NUR ---
MS RN CLOSING NOTES PT LYING IN BED WITH EYES CLOSED. EASY TO AROUSE. A/O X4. C/O BURNING AND THROBBING PAIN ON HIS BUE. NO SOB OR NOTED. TOLERATING ROOM AIR WELL. HAS LEFT WRIST IV ACCESS #18G WITH NS RUNNING AT 50 ML/HR. INTACT, PATENT AND FLUSHING. HAS F/C DRAINING CLEAR YELLOW URINE VIA GRAVITY. ALL NEEDS ATTENDED. KEPT DRY AND COMFORTABLE. SAFETY PRECAUTIONS IN PLACE: BED LOW AND LOCKED, SIDE RAILS UP X2, CALL LIGHT WITHIN REACH.
[2022-01-20 08:00] VITALS: BP 100/62
[2022-01-20] MEDS: PANTOPRAZOLE 40 MG TABLET.DR PO SCH (08:24)
[2022-01-20] MEDS: HYDROCODONE/APAP 10/325MG TABLET PO PRN (08:24)
[2022-01-20] MEDS: METFORMIN 500 MG TABLET PO SCH ×2 (08:24→16:14)
[2022-01-20] MEDS: GABAPENTIN 300 MG CAPSULE PO SCH ×3 (08:24→16:14)
[2022-01-20] MEDS: LISINOPRIL (5MG) 5 MG TABLET PO SCH (08:25)
[2022-01-20] MEDS: GLUCERNA SHAKE 237 ML CAN PO SCH ×2 (08:25→17:30)
[2022-01-20] MEDS ORDERED: MAGNESIUM OXIDE 400 MG TABLET PO ONE (14:00)
[2022-01-20 16:00] VITALS: BP 108/51
--- NOTE | 2022-01-20 18:42 | NUR ---
RN CLOSING NOTES PATIENT RESTING IN BED, NO SIGNS OF ACUTE DISTRESS NOTED. STABLE ON ROOM AIR, NO SOB NOTED, BREATHING EVEN AND UNLABORED. IV ACCESS ON LEFT WRIST #18G, INTACT AND PATENT, WITH IVF OF NS @50 ML/HR RUNNING. F/C INTACT DRAINING CLEAR YELLOW URINE. ALL DUE MEDS GIVEN, TOLERATED WELL. MORPHINE IVP GIVEN FOR C/O PAIN. SAFETY MEASURE MAINTAINED. BED IN LOWEST AND LOCKED POSITION, SIDE RAILS UP X2, CALL LIGHT PLACED WITHIN EASY REACH. WILL ENDORSE TO NEXT SHIFT FOR CONTINUITY OF CARE.
--- NOTE | 2022-01-20 19:45 | NUR ---
MS RN OPENING NOTE PATIENT ALERT/ORIENTED X 4, PT ABLE TO MAKE NEEDS KNOWN. PT STABLE ON RA, NO S/S OF DISTRESS OR SOB NOTED, BREATHING EVEN AND UNLABORED. PT STILL IN PAIN BUT PAIN MEDICATION NOT DUE YET. IV ACCESS ON LEFT WRIST #18G INTACT AND INFUSING NS @ 50 ML/HR. PT HAS LEWIS CATHETER IN PLACE DRAINING YELLOW URINE. SAFETY MEASURES IN PLACE: CALL LIGHT WITHIN REACH, SIDE RAILS UP X 2, BED LOCKED IN LOWEST POSITION, BED ALARM ON. WILL CONTINUE TO MONITOR PATIENT
[2022-01-20] MEDS ORDERED: GABA300C PO (21:44)
[2022-01-20] MEDS ORDERED: NUT.237L45 PO (21:44)
[2022-01-20] MEDS ORDERED: MERO1PIG IV (21:44)
--- NOTE | 2022-01-20 22:44 | NUR ---
MS RN NOTE PATIENT TO BE TRANSFERRED TO [facility] ROOM 8212. REPORT GIVEN TO [facility] [phone]
--- NOTE | 2022-01-20 22:48 | NUR ---
MS LIVE IN HOUSEKEEPER NANNY NOTE PATIENT TAKEN VIA AMBULANCE TO [facility] FOR HIGHER LEVEL OF CARE. PT ALERT/ORIENTED X 4, ABLE TO MAKE NEEDS KNOWN. PT STABLE ON RA, NO S/S OF DISTRESS OR SOB NOTED, BREATHING EVEN AND UNLABORED. LEFT WRIST #18G IV ACCESS INTACT AND FLUSHING WELL. LEWIS CATHETER IN PLACE AND DRAINING YELLOW URINE, BAG EMPTIED BEFORE TRANSFER. PATIENT SIGNED DISCHARGE PAPERS, DISCHARGE PAPER GIVEN TO EMT. ALL BELONGINGS TAKEN WITH PATIENT.
[2022-01-24 14:07] LABS: *CRYPTOCOCCUS AG, CSF Negative (Negative)
== END 2022-01-20 22:50 | disposition short-term general hospital (02) | DRG 720 ==
LOC: ER 20:34 → MED 01-12 00:31
PROVIDERS: ADMIT Registered Nurse; ATTEND Nurse Practitioner Acute Care
PROC: 009U3ZX Drainage of Spinal Canal, Percutaneous Approach, Diagnostic (ICD-10-PCS; principal; 2022-01-18)
DX: A41.9 Sepsis, unspecified organism (principal); E11.42 Type 2 diabetes mellitus with diabetic polyneuropathy; G61.81 Chronic inflammatory demyelinating polyneuritis; E87.1 Hypo-osmolality and hyponatremia; E88.09 Other disorders of plasma-protein metabolism, not elsewhere classified; N39.0 Urinary tract infection, site not specified; B96.20 Unspecified Escherichia coli [E. coli] as the cause of diseases classified elsewhere; D50.9 Iron deficiency anemia, unspecified; E83.42 Hypomagnesemia; E86.1 Hypovolemia; G89.4 Chronic pain syndrome; I10 Essential (primary) hypertension; Z20.822 Contact with and (suspected) exposure to COVID-19; B96.89 Other specified bacterial agents as the cause of diseases classified elsewhere; R26.9 Unspecified abnormalities of gait and mobility; M51.17 Intervertebral disc disorders with radiculopathy, lumbosacral region; M50.30 Other cervical disc degeneration, unspecified cervical region; Z91.81 History of falling; Z16.12 Extended spectrum beta lactamase (ESBL) resistance
CPT/HCPCS: 36415; 70450-TC; 71045-TC; 72125-TC; 80048-TC; 80076-TC; 81001; 82607-TC; 82962-TC; 83605-TC; 83735-TC; 84100-TC; 84155; 84157; 84165; 84166; 84443-TC; 84484-TC; 85025-TC; 85652-TC; 86140-TC; 86592; 86694; 87040-TC; 87070-TC; 87081-TC; 87086-TC; 87186-TC; 87806; 87899; 89051-TC; 97116-TC; 97530-TC; 97535-TC; C9113; C9803; G0378; G0480; J0696; J1815; J2185; J2270; J2405; J2543; J3475; J7030; J7042; J7050; J7060